=== PATIENT | female | born 1960 | race Caucasian/White ===

== ENCOUNTER → 2018-06-29 11:46 | Outpatient (CLI) | payer OTHER, SELFPAY ==
--- NOTE | 2018-06-29 | DI.US.S_ITS ---
PROCEDURE: US ABDOMEN LIMITED INDICATIONS: ABDOMINAL WALL LUMP TECHNIQUE: Real-time focused scanning was performed of the abdomen, with image documentation. COMPARISON: None. FINDINGS: 3.3 x 1.5 x 3.6 cm isoechoic subcutaneous soft tissue masses present corresponding to the palpable abnormality. Findings suspicious for fat containing periumbilical hernia. IMPRESSION: Probable fat containing periumbilical hernia. If indicated CT could be performed. Dictated by: Suhas PHILLIPS Interpreted: Catrachito Doe MD on 06/29/2018 at 12:16 Approved by: Catrachito Doe M.D. on 06/29/2018 at 14:50
== END ==
PROVIDERS: PCP Physician Assistant Medical; Visit Provider Physician Assistant Medical
DX: R19.05 Periumbilic swelling, mass or lump (principal)
CPT/HCPCS: 76705

== ENCOUNTER 2018-09-19 06:32 | Day surgery (SDC) | payer OTHER, SELFPAY ==
[2018-09-15 11:21] VITALS: BMI 27.4
[2018-09-19] VITALS (9 sets, daily range): BP systolic 99–125; BP diastolic 66–80; PULSE 68–89; RESP 10–16; TEMP 36.1–36.8; O2SAT 95–98; BMI 27.9
--- NOTE | 2018-09-19 07:30 | PM.HP.1 ---
History of Present Illness Date Patient Seen: 09/19/18 Time Patient Seen: 07:30 Chief complaint: hernia repair [id number] Narrative: 58-year-old female who presented with epigastric mass intermittently that has been tender. No nausea or vomiting. No masses elsewhere. Reports normal bowel bladder function. No fever or chills. Relates no history consistent with incarceration. Masses been slowly enlarging and becoming more symptomatic. Patient History Medical History History of UTI (Acute) Hyperlipidemia (Acute) Hypertension (Acute) Impaired vision (Acute) Postmenopausal (Acute) Umbilical hernia (Acute) Upper respiratory infection (Acute) Ventral hernia (Acute) Type 1 diabetes (Chronic) Surgical History History of colonoscopy (Acute) Family & Social History Social History: household members spouse Tobacco & Substance use: Smoking Status Never smoker alcohol intake current Substance Use Type does not use Meds Home Medications Medication Instructions Recorded Confirmed Type atorvastatin 20 mg tablet 20 mg PO DAILY 08/16/18 09/19/18 History cholecalciferol (vitamin D3) 5,000 5,000 unit PO DAILY 08/16/18 09/15/18 History unit capsule humalog SUBCUT 08/16/18 08/16/18 History losartan 100 mg tablet 100 mg PO DAILY 08/16/18 09/19/18 History insulin glargine [Lantus U-100 40 unit SUBCUT DAILY 09/15/18 09/19/18 History Insulin] Allergies Allergy/AdvReac Type Severity Reaction Status Date / Time aspirin AdvReac nausea Verified 09/15/18 11:24 Review of Systems Review of Systems All systems reviewed & are unremarkable except as noted in HPI and below Exam Narrative Exam Narrative: Well-nourished well-developed female in no acute distress. Alert oriented x3 Chest clear to auscultation bilaterally. Regular rate and rhythm Abdomen soft and nondistended. She has a reducible mildly tender approximately 2 cm reducible mass 4 cm superior to the umbilicus consistent with hernia. No other masses. No hepatomegaly. No ascites. Extremities show no clubbing, cyanosis, or edema Objective Labs Labs: No new laboratory radiographic studies for review since her initial evaluation on August 16, 2018. Assessment & Plan Plan: Assessment/Plan Narrative: 58-year-old female with symptomatic reducible ventral hernia. I recommended open ventral hernia repair with potentially mesh placement. Technical details were again reviewed. Risks, benefits, alternatives were discussed. Otherwise her history and physical examination as well as my preoperative discussion with her has not changed in any detail since her initial evaluation in the office dated August 16, 2018. We will therefore proceed today as planned with hernia repair. Consent is on the chart. Orders written.
[2018-09-19] MEDS: LACTATED RINGERS 1,000 ML 42 ML IV (07:32)
[2018-09-19] MEDS: MIDAZOLAM 2 MG/2 ML VIAL IV (07:42)
[2018-09-19] MEDS: CEFAZOLIN 2 GM/100 ML FROZ.PIGGY IV (07:45)
--- NOTE | 2018-09-19 08:07 | SUR.OPER ---
Supine on padded OR bed, head on pillow, arms secured on padded arm boards at <90 degrees abduction, legs uncrossed, safety belt at thigh.
[2018-09-19] MEDS: LIDOCAINE 1% W/EPI INJ 20 ML INJ (08:12)
[2018-09-19] MEDS: BUPIVACAINE 0.5% (PF) VIAL 30 ML INJ (08:13)
--- NOTE | 2018-09-19 08:47 | P.OP_ITS ---
Operative Date/Time/Diagnoses Date of procedure: 09/19/18 Time of procedure: 08:42 Pre-op diagnosis: Symptomatic reducible ventral hernia Post-op diagnosis: same Procedure & Clinicians Procedure: Open primary repair of symptomatic reducible ventral hernia Same procedure as scheduled: Yes Indications: 58-year-old female who presented with intermittent painful epigastric mass consistent with reducible hernia. Open repair was recommended. Surgeon: Michael Haywood Click Yes if Unassisted: Yes Anesthesia Type: General Operative Notes Findings: 1. Isolated ventral hernia in the supraumbilical midline measuring approximately 1.2 cm in greatest dimension transversely 2. Small hernia sac containing preperitoneal fat 3. No evidence of adjacent satellite hernias Closure Type: primary Specimen(s): none sent Implants & Drains: None Estimated Blood Loss (mL): 5 Blood products transfused: none Procedure in detail: After obtaining informed consent the patient was brought to the operating room placed supine on the table. After satisfactory induction of anesthesia the abdomen was prepped and draped in usual sterile fashion. SCOAP time out was performed per standard protocol. Previously marked vertical midline area was identified overlying the hernia sac. Area was infiltrated with a 1 :1 mixture of 1% lidocaine with 1: 100,000 epinephrine and 0.5% plain Marcaine for postoperative analgesia. Vertical midline incision was created for distance of approximately 4 cm using 10 scalpel blade. Bovie was used to achieve hemostasis and carried the dissection through the subcutaneous tissue to the apex of the hernia sac which was readily identified. Weitlaner retractor was used to provide exposure. Hernia sac was then dissected free from surrounding connective tissue using Metzenbaum scissors. Adhesions between the fascia and hernia sac were taken down sharply as well. Bovie was used to achieve hemostasis. Great care was taken to avoid injury to intraperitoneal structures. Once the hernia sac and its contents had been liberated they were reduced back into the abdominal cavity without issue. Hemostasis was verified. The findings are as above. Because the defect was relatively small and isolated I did elected for primary closure with 3 individual interrupted figure- of-eight 0 Tycron sutures. The sutures were placed taking care to avoid injury to underlying peritoneal structures. Sutures were then secured and noted to be in good position. The repair was solidly intact. Wound was irrigated and noted to be hemostatic. Subcutaneous tissue was then reapproximated with interrupted 3 0 Vicryl suture. Skin was closed in a running subcuticular fashion with 4 0 Monocryl suture. Dermal adhesive was applied to the skin. Anesthesia was reversed and the patient extubated in the operating room. She was taken recovery in stable condition. Complications: none Condition: stable Disposition: PACU Plan for aftercare: 1. Discharge home 2. Follow up in surgery Clinic in 2 weeks
[2018-09-19] MEDS: fentaNYL 100 MCG/2 ML INJ 50 MCG IV ×2 (08:57→09:05)
[2018-09-19] MEDS: OXYCODONE/ACETAMINOPHEN 5/325 TABLET 1 TAB PO ×2 (09:09→09:45)
--- NOTE | 2018-09-19 09:10 | SUR.PHASEI ---
0905 rx for pain, unchanged 908 applesause given, tolerating water and ice chips well. PO rx given for pain unchanged.
--- NOTE | 2018-09-19 09:13 | SUR.PHASEI ---
Report given to Missy Sumner RN. Pt awake, stable, skin warm and dry, resp unlabored, oriented
== END 2018-09-19 10:10 | disposition home or self-care (01) ==
PROVIDERS: PCP Physician Assistant Medical; Visit Provider Surgery
PROC: (CPT 49560; principal; 2018-09-19 07:45)
DX: K43.9 Ventral hernia without obstruction or gangrene (principal); E10.9 Type 1 diabetes mellitus without complications; Z79.4 Long term (current) use of insulin; I10 Essential (primary) hypertension; E78.5 Hyperlipidemia, unspecified
CPT/HCPCS: 49560; J0690; J2250; J2405; J2704; J3010

== ENCOUNTER → 2019-04-03 14:19 | Outpatient (CLI) | payer OTHER, SELFPAY ==
--- NOTE | 2019-04-03 14:22 | DI.MG.S_ITS ---
BILATERAL DIGITAL SCREENING MAMMOGRAM 3D/2D WITH CAD: 04/03/2019 CLINICAL: Routine screening. Comparison is made to exams dated: 08/08/2017 mammogram, 06/18/2016 mammogram - [facility], and 11/20/2014 mammogram - [facility]. The tissue of both breasts is heterogeneously dense. This may lower the sensitivity of mammography. Current study was also evaluated with a Computer Aided Detection (CAD) system. There are new grouped coarse punctate calcifications in the right breast at 11 o'clock posterior depth. No other significant masses, calcifications, or other findings are seen in either breast. IMPRESSION: INCOMPLETE: NEEDS ADDITIONAL IMAGING EVALUATION The new grouped coarse punctate calcifications in the right breast are indeterminate. Mediolateral, spot magnification, and additional views are recommended. This exam was interpreted at Station ID: [id number]. NOTE: For mammograms, a report in lay terms will be sent to the patient. Approximately 15% of breast malignancies will not be visualized mammographically. In the management of a palpable breast mass, a negative mammogram must not discourage biopsy of a clinically suspicious lesion. Electronically Signed By: Elver tucker/amos:04/04/2019 15:25:29 letter sent: Additional Imaging Needed ACR BI-RADS Category 0: Incomplete 3340F
== END ==
PROVIDERS: PCP Physician Assistant Medical; Visit Provider Physician Assistant Medical
DX: Z12.31 Encounter for screening mammogram for malignant neoplasm of breast (principal)
CPT/HCPCS: 77063; 77067

== ENCOUNTER → 2019-05-15 13:11 | Outpatient (CLI) | payer OTHER, SELFPAY ==
--- NOTE | 2019-05-15 | DI.MG.S_ITS ---
UNILATERAL RIGHT DIGITAL DIAGNOSTIC MAMMOGRAM 3D/2D WITH ADDITIONAL VIEWS: 05/15/2019 CLINICAL: Additional evaluation requested from prior study. Comparison is made to exams dated: 04/03/2019 mammogram, 08/08/2017 mammogram, and 06/18/2016 mammogram - [facility]. The tissue of right breast is heterogeneously dense. This may lower the sensitivity of mammography. There are new grouped coarse heterogeneous punctate calcifications in the right breast at 11 o'clock posterior depth. No other significant masses or calcifications are seen in the breast. IMPRESSION: PROBABLY BENIGN The new grouped coarse heterogeneous punctate calcifications in the right breast are probably benign. A follow-up mammogram in 6 months is recommended. A follow-up mammogram in 6 months is recommended to demonstrate stability. This exam was interpreted at Station ID: [id number]. NOTE: For mammograms, a report in lay terms will be sent to the patient. Approximately 15% of breast malignancies will not be visualized mammographically. In the management of a palpable breast mass, a negative mammogram must not discourage biopsy of a clinically suspicious lesion. Electronically Signed By: Elver tucker/amos:05/15/2019 13:33:57 letter sent: Followup Recommended ACR BI-RADS Category 3: Probably benign 3343F
== END ==
PROVIDERS: PCP Physician Assistant Medical; Visit Provider Physician Assistant Medical
DX: R92.1 Mammographic calcification found on diagnostic imaging of breast (principal)
CPT/HCPCS: 77065; G0279

== ENCOUNTER → 2019-12-14 10:10 | Outpatient (CLI) | payer OTHER, SELFPAY ==
--- NOTE | 2019-12-14 | DI.MG.S_ITS ---
UNILATERAL RIGHT DIGITAL DIAGNOSTIC MAMMOGRAM 3D/2D SHORT-TERM FOLLOW-UP: 12/14/2019 CLINICAL: Short term follow up. Comparison is made to exams dated: 05/15/2019 mammogram, 04/03/2019 mammogram, and 08/08/2017 mammogram - [facility]. The tissue of right breast is heterogeneously dense. This may lower the sensitivity of mammography. The previously described grouped coarse calcifications in the right breast at 11 o'clock posterior depth have decreased in size and decreased in number. No other significant masses or calcifications are seen in the breast. IMPRESSION: There is no mammographic evidence of malignancy. Return to annual mammogram screening schedule is recommended. This exam was interpreted at Station ID: [id number]. NOTE: For mammograms, a report in lay terms will be sent to the patient. Approximately 15% of breast malignancies will not be visualized mammographically. In the management of a palpable breast mass, a negative mammogram must not discourage biopsy of a clinically suspicious lesion. Electronically Signed By: Shamar Norton M.D. at/:12/14/2019 11:52:51 letter sent: Normal Exam ACR BI-RADS Category 2: Benign Finding(s) 3342F
== END ==
PROVIDERS: PCP Physician Assistant Medical; Referring Provider Physician Assistant Medical; Visit Provider Physician Assistant Medical
DX: R92.8 Other abnormal and inconclusive findings on diagnostic imaging of breast (principal)
CPT/HCPCS: 77065; G0279

== ENCOUNTER → 2021-07-01 11:26 | Outpatient (CLI) | payer OTHER, SELFPAY ==
--- NOTE | 2021-07-01 | DI.MG.S_ITS ---
BILATERAL DIGITAL SCREENING MAMMOGRAM 3D/2D WITH CAD: 07/01/2021 CLINICAL: Routine screening. Comparison is made to exams dated: 12/14/2019 mammogram, 04/03/2019 mammogram, and 08/08/2017 mammogram - [facility]. The tissue of both breasts is heterogeneously dense. This may lower the sensitivity of mammography. Current study was also evaluated with a Computer Aided Detection (CAD) system. No significant masses, calcifications, or other findings are seen in either breast. There has been no significant interval change. IMPRESSION: NEGATIVE There is no mammographic evidence of malignancy. A 1 year screening mammogram is recommended. This exam was interpreted at Station ID: [id number]. NOTE: For mammograms, a report in lay terms will be sent to the patient. Approximately 15% of breast malignancies will not be visualized mammographically. In the management of a palpable breast mass, a negative mammogram must not discourage biopsy of a clinically suspicious lesion. Electronically Signed By: Phillip Medellin M.D., jr/amos:07/01/2021 16:43:53 letter sent: Normal Exam ACR BI-RADS Category 1: Negative 3341F
== END ==
PROVIDERS: PCP Physician Assistant Medical; Referring Provider Physician Assistant Medical; Visit Provider Physician Assistant Medical
DX: Z12.31 Encounter for screening mammogram for malignant neoplasm of breast (principal)
CPT/HCPCS: 77063; 77067

== ENCOUNTER → 2022-09-07 11:24 | Outpatient (CLI) | payer OTHER, SELFPAY ==
[2022-09-07 11:55] LABS: COVID19 -Nasal RAPID Negative (Negative)
== END ==
PROVIDERS: PCP Physician Assistant Medical; Visit Provider Surgery
DX: Z20.822 Contact with and (suspected) exposure to COVID-19 (principal); Z01.812 Encounter for preprocedural laboratory examination
CPT/HCPCS: 87635

== ENCOUNTER 2022-09-08 06:52 | Day surgery (SDC) | payer OTHER, SELFPAY ==
[2022-09-08] VITALS (7 sets, daily range): BP systolic 120–133; BP diastolic 73–84; PULSE 77–84; RESP 12–17; TEMP 36.5–37.2; O2SAT 94–96; BMI 28.9
--- NOTE | 2022-09-08 07:37 | PM.HP.1 ---
History of Present Illness History of Present Illness Date Patient Seen: 09/08/22 Time Patient Seen: 07:37 Chief complaint: SDC Narrative: 62-year-old woman with a recurrent ventral hernia here for elective open repair with mesh. Please refer to the H&P from July 2022 for further detail. No interval changes in health. Patient History Medical History History of UTI Hyperlipidemia Hypertension Impaired vision Postmenopausal Type 1 diabetes Umbilical hernia Upper respiratory infection Ventral hernia Surgical History History of colonoscopy Hx of ventral hernia repair Family & Social History Family History Grandmother Diabetes mellitus Social History: household members spouse Tobacco & Substance use: Smoking Status Never smoker alcohol intake current alcohol intake frequency holiday/special occasion Substance Use Type does not use Meds Home Medications and Allergies Home Medications Medication Instructions Recorded Confirmed Type cholecalciferol (vitamin D3) 125 5,000 unit PO DAILY 08/16/18 09/08/22 History mcg (5,000 unit) capsule blood-glucose transmitter (Dexcom 07/29/22 07/29/22 History G6 Transmitter device) insulin glargine 100 unit/mL 40 unit SUBCUT DAILY 07/29/22 09/08/22 History subcutaneous solution losartan 100 mg tablet 50 mg PO DAILY 07/29/22 09/08/22 History paroxetine HCl 20 mg tablet 20 mg PO DAILY 07/29/22 09/08/22 History rosuvastatin 40 mg tablet 40 mg PO DAILY 07/29/22 09/08/22 History insulin lispro 100 unit/mL See Protocol SUBCUT AC 09/08/22 09/08/22 History subcutaneous pen Allergies Allergy/AdvReac Type Severity Reaction Status Date / Time nitrofurantoin Allergy Unknown Verified 09/08/22 07:15 sulfamethoxazole Allergy Unknown Verified 09/08/22 07:15 [From Sulfamethoxazole-Trimethoprim] trimethoprim Allergy Unknown Verified 09/08/22 07:15 [From Sulfamethoxazole-Trimethoprim] aspirin AdvReac nausea Verified 09/08/22 07:15 cephalexin [From Keflex] AdvReac Verified 09/08/22 07:15 Exam Vital Signs (past 8 hours): - 09/08/22 07:19 Temperature 97.7 F Pulse Rate 80 Respiratory Rate 16 Blood Pressure 127/75 Pulse Oximetry 95 Oxygen Delivery Method Room Air Oxygen Delivery Method Room Air Narrative Exam Narrative: General adult woman alert oriented no acute distress Abdomen soft nontender nondistended. Supra umbilical ventral hernia 5 cm. Reducible. Assessment & Plan Assessment and plan (1) Recurrent ventral hernia: Status: Acute Assessment & Plan narrative: 62 woman with a recurrent symptomatic ventral hernia here for open elective hernia repair. Overview of the operation was again discussed with patient the bedside. Operative risks including bleeding, infection, recurrence, damage to surrounding structures were discussed. Questions have been answered she is in agreement with this plan. She gives a verbal and written consent to proceed. Time Spent With Patient Critical Care time: I spent a total of [] minutes of critical care time on this patient's care today; this time is exclusive of procedural time.
[2022-09-08] MEDS: LACTATED RINGERS 1,000 ML 100 ML IV (07:42)
--- NOTE | 2022-09-08 07:43 | P.OP_ITS ---
Operative Date/Time/Diagnoses Date of procedure: 09/08/22 Time of procedure: 07:43 Pre-op diagnosis: Recurrent ventral hernia Post-op diagnosis: same Procedure & Clinicians Procedure: Open repair of recurrent ventral hernia Same procedure as scheduled: Yes Indications: Recurrent symptomatic ventral hernia Surgeon: Jabier Arnett Click Yes if Unassisted: Yes Anesthesia Type: General Operative Notes Findings: fascial defect 5 cm containing omentum Specimen(s): none sent Prosthetic devices, grafts, tissues, transplants, or devices: 8x12 cm bard ventralex Procedure in detail: Patient was brought to the operating room placed supine on the table. Bilateral lower extremity compression devices were applied. They received Clindamycin prior to skin incision. Prepped and draped in sterile fashion, ioban was placed. Time-out was performed. A midline incision was made superior to the umbilicus with a knife. The subcutaneous tissue was divided to expose the midline fascia. The fascia had 5cm defect which contained omentum. The fascial edges were trimmed back to healthy tissue. the hernia sac was excised. The posterior sheath was closed with running vicryl. The retromuscular space was entered by incising the posterior rectus sheath approximately 1 cm from its e dge. The retromuscular plane was developed using electrocautery with care to protect the neurovascular structures. The retrorectus space was developed in the same fashion on the contralateral side. The spaces were then connected superiorly and inferiorly. A Bard 8 x 12 cm polypropelene soft tissue mesh placed in the retro rectus space. The mesh was anchored with interrupted Ethibond to the posterior fascia, the nonadhesive side down.. The anterior sheath was then closed in interrupted fashion over the mesh with interrupted Ethibond suture. Hemostasis was checked. The subcutaneous tissue was then reapproximated using Vicryl skin closed with running 4-0 Monocryl followed by the application of Dermabond. Patient emerged from anesthesia was extubated and transferred to recovery room in stable condition. Complications: none Post-operative Condition: stable Disposition: same day surgery
[2022-09-08] MEDS: CLINDAMYCIN 900 MG/50 ML PIGGYBACK 50 MG IV (07:55)
--- NOTE | 2022-09-08 08:02 | SUR.OPER ---
Supine on padded OR bed, head on pillow, arms secured on padded arm boards at <90 degrees abduction, legs uncrossed, safety belt at thigh.
[2022-09-08] MEDS: BUPIVACAINE 0.25% (PF) VIAL 30 ML INJ (08:44)
[2022-09-08] MEDS: HYDROMORPHONE 2 MG INJ IV ×2 (09:14→09:23)
[2022-09-08] MEDS: OXYCODONE/ACETAMINOPHEN 5/325 TABLET 1 TAB PO ×2 (09:18→09:31)
[2022-09-08] MEDS: ONDANSETRON 4 MG/2 ML INJ IV (09:46)
== END 2022-09-08 10:10 | disposition home or self-care (01) ==
PROVIDERS: PCP Physician Assistant Medical; Referring Provider Surgery; Visit Provider Surgery
PROC: (CPT 49561; principal; 2022-09-08 07:45)
DX: K43.0 Incisional hernia with obstruction, without gangrene (principal); E10.8 Type 1 diabetes mellitus with unspecified complications; Z79.4 Long term (current) use of insulin; I10 Essential (primary) hypertension
CPT/HCPCS: 49561; 49568; 49651; 82962; J1100; J1170; J1885; J2250; J2405; J2704; J3010

== ENCOUNTER → 2023-07-20 11:20 | Outpatient (CLI) | payer OTHER, SELFPAY ==
--- NOTE | 2023-07-20 11:21 | DI.MG.S_ITS ---
BILATERAL DIGITAL SCREENING MAMMOGRAM 3D/2D WITH CAD: 07/20/2023 CLINICAL: Routine screening. Comparison is made to exams dated: 07/01/2021 mammogram, 04/03/2019 mammogram, and 08/08/2017 mammogram - [facility]. Both breasts are heterogeneously dense, which may obscure small masses (category c / 51-75% glandular tissue). Current study was also evaluated with a Computer Aided Detection (CAD) system. There is a new 1.3 cm oval equal density focal asymmetry in the right breast at 2 o'clock middle depth. No other significant masses, calcifications, or other findings are seen in either breast. IMPRESSION: INCOMPLETE: NEEDS ADDITIONAL IMAGING EVALUATION The new 1.3 cm oval equal density focal asymmetry in the right breast is indeterminate. Additional views with possible ultrasound are recommended. Based on the Tyrer Cuzick model (a risk assessment model) the patient's lifetime risk is 10.7% and her 10 year risk is 5.0%. According to the ACR, ACS, and NCCN guidelines, an annual breast MRI exam along with mammogram is recommended if the patient's lifetime risk is 20% or greater. This exam was interpreted at Station ID: [id number]. NOTE: For mammograms, a report in lay terms will be sent to the patient. Approximately 15% of breast malignancies will not be visualized mammographically. In the management of a palpable breast mass, a negative mammogram must not discourage biopsy of a clinically suspicious lesion. Electronically Signed By: Shamar antonio/amos:07/20/2023 17:34:01 letter sent: Additional Imaging Needed ACR BI-RADS Category 0: Incomplete 3340F
== END ==
PROVIDERS: PCP Physician Assistant Medical; Referring Provider Physician Assistant Medical; Visit Provider Physician Assistant Medical
DX: Z12.31 Encounter for screening mammogram for malignant neoplasm of breast (principal); N64.89 Other specified disorders of breast
CPT/HCPCS: 77063; 77067

== ENCOUNTER → 2023-08-15 13:20 | Outpatient (CLI) | payer OTHER, SELFPAY ==
--- NOTE | 2023-08-15 | DI.US.S_ITS ---
LIMITED ULTRASOUND OF RIGHT BREAST AND AXILLA: 08/15/2023 CLINICAL: Patient returns today to evaluate a focal asymmetry in the right breast. Comparison is made to exams dated: 08/15/2023 mammogram, 07/20/2023 mammogram, 07/01/2021 mammogram, 12/14/2019 mammogram, 05/15/2019 mammogram, and 08/08/2017 mammogram - [facility]. Color flow and real-time ultrasound of the right breast 2 o'clock, and axilla regions were performed. Serrato scale images of the real-time examination were reviewed. There is a 1.2 cm x 1.2 cm x 0.8 cm oval mass with a microlobulated margin in the right breast at 2 o'clock middle depth 3 cm from the nipple. This oval mass is hypoechoic. This correlates with mammography findings. Color flow imaging demonstrates that there is no vascularity present. No significant abnormalities were seen sonographically in the right axilla. IMPRESSION: SUSPICIOUS OF MALIGNANCY The 1.2 cm x 1.2 cm x 0.8 cm oval mass in the right breast is at a low suspicion for malignancy. An ultrasound guided biopsy is recommended. No enlarged right axillary lymph nodes. Exam findings were discussed with the patientby Dr. Norton. This exam was interpreted at Station ID: [id number]. Electronically Signed By: Naeem Rodarte M.D. slc/:08/15/2023 14:35:21 letter sent: Biopsy Required Ultrasound BI-RADS: 4a Low suspicion for malignancy
--- NOTE | 2023-08-15 | DI.MG.S_ITS ---
UNILATERAL RIGHT DIGITAL DIAGNOSTIC MAMMOGRAM 3D/2D WITH ADDITIONAL VIEWS: 08/15/2023 CLINICAL: Additional evaluation requested from prior study. Comparison is made to exams dated: 07/20/2023 mammogram, 07/01/2021 mammogram, 12/14/2019 mammogram, 05/15/2019 mammogram, and 04/03/2019 mammogram - [facility]. The right breast is heterogeneously dense, which may obscure small masses (category c / 51-75% glandular tissue). There is a new 1.3 cm oval equal density focal asymmetry in the right breast at 2 o'clock middle depth. No other significant masses or calcifications are seen in the breast. IMPRESSION: INCOMPLETE: NEEDS ADDITIONAL IMAGING EVALUATION The new 1.3 cm oval equal density focal asymmetry in the right breast is indeterminate. A targeted ultrasound is recommended and will immediately follow. Based on the Tyrer Cuzick model (a risk assessment model) the patient's lifetime risk is 10.7% and her 10 year risk is 5.0%. According to the ACR, ACS, and NCCN guidelines, an annual breast MRI exam along with mammogram is recommended if the patient's lifetime risk is 20% or greater. This exam was interpreted at Station ID: [id number]. NOTE: For mammograms, a report in lay terms will be sent to the patient. Approximately 15% of breast malignancies will not be visualized mammographically. In the management of a palpable breast mass, a negative mammogram must not discourage biopsy of a clinically suspicious lesion. Electronically Signed By: Naeem Rodarte M.D. slc/:08/15/2023 13:53:21 ACR BI-RADS Category 0: Incomplete 3340F
== END ==
PROVIDERS: PCP Physician Assistant Medical; Referring Provider Physician Assistant Medical; Visit Provider Physician Assistant Medical
DX: R92.8 Other abnormal and inconclusive findings on diagnostic imaging of breast (principal); N63.12 Unspecified lump in the right breast, upper inner quadrant
CPT/HCPCS: 76642; 77065; G0279

== ENCOUNTER → 2023-09-01 14:04 | Outpatient (CLI) | payer OTHER, SELFPAY ==
--- NOTE | 2023-09-01 | DI.MG.S_ITS ---
UNILATERAL RIGHT DIGITAL DIAGNOSTIC MAMMOGRAM 3D/2D POST-NEEDLE BIOPSY POST-PROCEDURE IMAGING FOR MARKER PLACEMENT: 09/01/2023 CLINICAL: Post right breast ultrasound biopsy, clip placment imaging. Comparison is made to exams dated: 08/15/2023 mammogram, 07/20/2023 mammogram, 07/01/2021 mammogram, 12/14/2019 mammogram, 05/15/2019 mammogram, and 04/03/2019 mammogram - [facility]. The right breast is heterogeneously dense, which may obscure small masses (category c / 51-75% glandular tissue). There is a marker clip in the appropriate position in the right breast at 2 o'clock middle depth 3 cm from the nipple. This marker clip placement is at the biopsy site. IMPRESSION: POST PROCEDURE MAMMOGRAM FOR MARKER PLACEMENT There was a successful marker clip placement in the right breast middle depth. Based on the Tyrer Cuzick model (a risk assessment model) the patient's lifetime risk is 10.7% and her 10 year risk is 5.0%. According to the ACR, ACS, and NCCN guidelines, an annual breast MRI exam along with mammogram is recommended if the patient's lifetime risk is 20% or greater. This exam was interpreted at Station ID: [id number]. NOTE: For mammograms, a report in lay terms will be sent to the patient. Approximately 15% of breast malignancies will not be visualized mammographically. In the management of a palpable breast mass, a negative mammogram must not discourage biopsy of a clinically suspicious lesion. Electronically Signed By: Braulio Ortiz M.D. crm/:09/03/2023 09:47:03 ACR BI-RADS Category Post-procedure mammogram for marker placement
--- NOTE | 2023-09-01 | PATH_ITS ---
[facility] Accession Number: [id number] No. of containers..01 Tissue . 01 Material submitted: . breast - RIGHT BREAST MASS 2:00 3CMFN . 01 Diagnosis: A. Right Breast Mass, 2 O'clock, 3 CM From The Nipple, Biopsy: Breast tissue with fibroadenomatous change, gynecomastoid-like usual ductal hyperplasia, pseudoangiomatous stromal hyperplasia, cystic- like ductal dilatation, and focal apocrine metaplasia. Negative for atypia, carcinoma in situ, and malignancy. MNT 09/11/2023 2210 Local . 01 Electronically signed: . Stephy Leo MD, Pathologist NPI- [id number] . 01 Gross description: . The specimen is received in formalin labeled with the patient's name, , and right breast 2 o'clock 3 cm FN, and consists of multiple yellow to red-brown soft tissue fragments aggregating to 1.9 x 0.9 x 0.3 cm. It is inked black, filtered, and submitted entirely in cassette A1. . The specimen was removed on 09/01/2023 at 1537 hours, time in formalin not provided, cold ischemic time cannot be calculated, total fixation time is approximately 36 hours. ([id number]) /CAITLIN 09/02/2023 1044 Local . 01 Microscopic: . A panel of immunostains* is performed on A1 to evaluate the intraductal proliferation, with appropriately staining external controls. The following immunoprofile supports the diagnosis: . Ck 5/6: Not lost/mosaic pattern. ER: Not overexpressed/mosaic pattern. p63: Fully retained. myosin: Fully retained. . This test was developed and its performance characteristics determined by [employer]. It has not been cleared or approved by the U.[place]. Food and Drug Administration. The FDA has determined that such clearance or approval is not necessary. This test is used for clinical purposes. It should not be regarded as investigational or for research. . 01 Pathologist provided ICD-10: D24.9 . 01 CPT . 716697, Q18944, J59190 Performed at: 01 [facility] [address] [place] [address], [place], [place] [id number] MD Elver Ruiz MD Phone: [phone]
--- NOTE | 2023-09-01 | DI.US.S_ITS ---
ULTRASOUND GUIDED BIOPSY RIGHT BREAST USING VACUUM DEVICE WITH MARKING DEVICE INSERTED: 09/01/2023 CLINICAL: Right breast mass. PATIENT CONSENT: Risks (minor bleeding, infection, vasovagal reaction and repeat procedure), benefits and alternatives were explained to the patient and written informed consent was obtained. Correlation is made to exams dated: 09/01/2023 mammogram, 08/15/2023 ultrasound, 07/20/2023 mammogram, 08/15/2023 mammogram, 07/01/2021 mammogram, and 12/14/2019 mammogram - [facility]. An ultrasound guided biopsy using real-time ultrasound was performed for the 1.2 cm x 1.2 cm x 0.8 cm mass located in the right breast at 2 o'clock middle depth 3 cm from the nipple. The skin was prepped in the usual manner. A biopsy needle was placed adjacent to the abnormality under ultrasound guidance. Once the needle was documented to be in the correct location, a specimen was obtained using the Mammotome biopsy system. A clip was inserted into the biopsy cavity. The specimen was sent to the laboratory for pathological analysis. IMPRESSION: ULTRASOUND GUIDED BIOPSY BENIGN Ultrasound guided biopsy of the 1.2 cm x 1.2 cm x 0.8 cm mass in the right breast at 2 o'clock middle depth 3 cm from the nipple was successful. Pathology indicates benign breast tissue with fibroadenomatous change, gynecomastoid-like usual ductal hyperplasia, cystic- like ductal dilatation, and focal apocrine metaplasia. Negative for atypia, carcinoma in situ, and malignancy. Pathology results are concordant with imaging findings. Return to annual mammogram screening schedule is recommended. This exam was interpreted at Station ID: [id number]. Braulio vu,ar/:09/12/2023 12:34:21
== END ==
LOC: US 14:05
PROVIDERS: PCP Physician Assistant Medical; Referring Provider Physician Assistant Medical; Visit Provider Physician Assistant Medical
DX: R92.8 Other abnormal and inconclusive findings on diagnostic imaging of breast (principal); N63.12 Unspecified lump in the right breast, upper inner quadrant
CPT/HCPCS: 19083; 77065